=== PATIENT | female | born 1955 | race Caucasian/White ===

== ENCOUNTER 2024-09-05 05:52 | Emergency (ER) | payer MEDICAID ==
[~2024-09-05] VITALS: Ht 165.1 cm; Wt 72.6 kg
[2024-09-05] MEDS ORDERED: OXYC5 PO (06:33)
[2024-09-05] MEDS ORDERED: RX Prepack 6 Tabs Oxycodone 5mg UD ONE (06:35)
[2024-09-05] MEDS ORDERED: METPRE4DP PO (06:35)
[2024-09-05] MEDS ORDERED: ACYC800 PO (06:35)
== END 2024-09-05 06:44 | disposition home or self-care (01) ==
LOC: ER 05:52
DX: R51.9 Headache, unspecified (principal)
CPT/HCPCS: 99282; A9270